=== PATIENT | female | born 1950 | race Caucasian/White ===

== ENCOUNTER 2016-09-02 05:30 | Day surgery (SDC) | payer OTHER ==
[2016-08-26 11:56] LABS: HEMOGLOBIN 11.8 g/dL (12.0-16.0)
[2016-08-26 11:58] LABS: HEMATOCRIT 36.8 % (36.0-48.0)
[2016-08-26 12:09] LABS: A/G RATIO 0.7 (0.7-1.9); ALBUMIN 3.2 G/DL (3.5-5.0); ALKALINE PHOSPHATASE 100 U/L (45-117); BUN (BLOOD UREA NITROGEN) 12 MG/DL (6-23); CALCIUM, SERUM 8.4 MG/DL (8.5-10.4); CHLORIDE, SERUM 102 MMOL/L (96-112); CO2 (CARBON DIOXIDE) 29 MMOL/L (24-34); CREATININE 0.59 MG/DL (0.55-1.02); GFR AFRICAN AMERICAN 111 ML/MIN (>=60); GFR NON AFRICAN AMERICAN 96 ML/MIN (>=60); GLOBULIN 4.3 G/DL (2.5-4.1); GLUCOSE, SERUM 254 MG/DL (60-99); POTASSIUM, SERUM 3.5 MMOL/L (3.5-5.3); SGOT(AST) 58 U/L (5-40); SGPT(ALT) 57 U/L (5-65); SODIUM, SERUM 141 MMOL/L (135-148); TOTAL PROTEIN 7.5 G/DL (6.0-8.5)
--- NOTE | ~2016-09-02 | OP ---
Record Of Operation [facility] [address] [place]. 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 POSTOPERATIVE DIAGNOSIS: Left breast ductal carcinoma in situ. PROCEDURE: Stereotactic wire bracketing localization. INDICATION FOR THE PROCEDURE: Ms. Biswas is a relatively healthy 66-year-old female with a DCIS biopsy proven in the [facility]. She has an area of calcifications around 2.5 cm in size and a bracketed wire localization as needed for the segmentectomy. OPERATIVE FINDINGS: After appropriate consent was noted on the chart, the patient was taken to the stereotactic room and placed on the table in a prone position. Her left breast was allowed to fall through the hole compression. The calcifications with hematoma and clip were targeted. The skin was cleansed and local anesthetic infiltrated in the skin and soft tissue. The needle with wire were then passed into the breast tissue and images noted this to be in good position. The wire was secured and the needle removed from the skin. Following this, the second wire was targeted. It was at the opposite end of the calcification. Skin was cleansed and local anesthetic infiltrated in the skin and soft tissue and the needle inserted to the appropriate spot. The wire was secured. Postprocedure image noted the 2 wires to be in good positions hematoma and clip. The rest of the skin was cleansed. The patient tolerated the procedure well. Mammographic images were taken for use in surgery. RAFA/MONSE Milena Titus MD / [id number] CC: MD Erlin Sloan M.D. MaryEllen Locher
--- NOTE | ~2016-09-02 | OP ---
Record Of Operation [facility] [address] [place]. [address] NAME: ENEDELIA BISWAS : 52 STATUS : [facility]#: [id number] AGE: 66 ADM/REG DATE : 09/02/16 MR#: [id number] REPORT SERV DATE: 09/05/16 DICTATED BY: MILENA TITUS DATE: 09/02/16 REPORT STATUS : Draft TRANSCRIBED BY: MODDonis DATE: 09/02/16 DATE OF PROCEDURE: PREOPERATIVE DIAGNOSIS: Left breast ductal carcinoma in situ. POSTOPERATIVE DIAGNOSIS: Left breast ductal carcinoma in situ. PROCEDURE: Left breast wire localized segmentectomy. INDICATION FOR THE PROCEDURE: Mrs. Biswas is a 66-year-old female with left breast microcalcifications over a 2.5 cm area. 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 The patient is strongly motivated for breast preservation. She has a small hematoma at this site, but a wire bracketed localization was performed earlier this morning to ensure all of the calcifications can be removed. OPERATIVE FINDINGS: After appropriate consent was noted on the chart, the patient was taken to the operating room in supine position. She was placed under general anesthesia without any complications. The 2 wires were trimmed. The left breast was prepped and draped in sterile fashion. Mammographic films from the mornings stereotactic localization were utilized to guide the dissection. An incision was made between the 2 wires. Sharp dissection was carried down to the level of breast parenchyma and the wires brought into the incision. It appeared on the mammographic views that the calcifications are slightly anterior and lateral to the 2 wires. I used the palpable hematoma as well as those directions to guide my lumpectomy. Dissection was carried broadly around the wire down to the tips and past the tips. A large lateral margin was taken as well en bloc. This specimen was marked with stitches and sent for permanent pathology. The wound was copiously irrigated with warm saline and hemostasis achieved. Local anesthetic was infiltrated in the skin and soft tissues and the incision closed in two layers with Monocryl. The skin was cleansed and dried and Dermabond overlaid. Following the Dermabond drying, the burn fluff and a binder were placed on the patient. The patient was awoken from anesthesia without complication, taken to PACU in stable condition for recovery. All counts were correct at the end of the case. ESTIMATED BLOOD LOSS: 20 mL. COMPLICATIONS: None. SPECIMENS: Left breast segment, 3 o'clock. BW/MONSE Milena Titus MD Record Of Operation [address] [address] NAME: ENEDELIA BISWAS : 52 STATUS : [facility] PAT#: [id number] AGE: 66 ADM/REG DATE : 09/02/16 MR#: [id number] REPORT SERV DATE: 09/05/16 DICTATED BY: MILENA TITUS DATE: 09/02/16 REPORT STATUS : Draft TRANSCRIBED BY: MONSE DATE: 09/02/16 / [id number] CC: MD Erlin Sloan M.D. Surya Werner M.D. Richard Brackett, M.D. Jenny Phillips, PA
[~2016-09-02 05:30] MED LIST: ACTOS15 PO; ALLEGRA180 PO; ASAB PO; BEN25 PO; COZAAR100 MG PO; DULERA 200 MCG/13 GM INH; GLUCPH PO; HYDROCHLOROT12.5 MG PO; IMU PO; LEVEMIR SC; LEVOTHYROXIN88 MCG PO; M-CLEAR WC PO; MCZ25 PO; METANX PO; NASONEX NAS; NEUR300 PO; NORV10 PO; NOVOLOG SC; P10 PO; P5 PO; PROAIR HFA INH; SINGULAIR1 PO; TOPXL100 PO; TRAZ50 PO; VITAMIN D31000 UNIT PO; WELCHOL 625 MG625 MG PO
== END 2016-09-02 14:29 | disposition home or self-care (01) ==
LOC: SDC 05:30
PROVIDERS: Surgery Surgical Oncology
PROC: 0HBU0ZZ Excision of Left Breast, Open Approach (ICD-10-PCS; 2016-09-02)
PROC: BH01ZZZ Plain Radiography of Left Breast (ICD-10-PCS; principal; 2016-09-02 10:45)
DX: D05.12 Intraductal carcinoma in situ of left breast (principal); I10 Essential (primary) hypertension; E11.9 Type 2 diabetes mellitus without complications; J84.10 Pulmonary fibrosis, unspecified; M05.60 Rheumatoid arthritis of unspecified site with involvement of other organs and systems; F32.9 Major depressive disorder, single episode, unspecified; Z90.710 Acquired absence of both cervix and uterus; Z90.89 Acquired absence of other organs; Z98.1 Arthrodesis status; Z98.890 Other specified postprocedural states; Z88.8 Allergy status to other drugs, medicaments and biological substances; Z91.018 Allergy to other foods; Z91.048 Other nonmedicinal substance allergy status; Z79.82 Long term (current) use of aspirin; Z79.4 Long term (current) use of insulin; Z79.84 Long term (current) use of oral hypoglycemic drugs; Z79.51 Long term (current) use of inhaled steroids; Z79.52 Long term (current) use of systemic steroids; Z79.899 Other long term (current) drug therapy; Z90.49 Acquired absence of other specified parts of digestive tract; Z98.51 Tubal ligation status
CPT/HCPCS: 71020; 80053; 82962; 85014; 85018; 88307; 93005; J0690; J2250; J2405; J3010